=== PATIENT | male | born 2000 | race Caucasian/White ===

== ENCOUNTER 2023-08-18 18:40 | Emergency (ER) | payer OTHER ==
[2023-08-18 19:27] VITALS: TEMP 98.2; BMI 25.0
[2023-08-18] MEDS ORDERED: KETOROLAC TROMETHAMINE 15 MG/ML VIAL IM ONE (19:52)
[2023-08-18] MEDS ORDERED: KETOROLAC TROMETHAMINE 15 MG/ML VIAL ONE (20:07)
[2023-08-18 20:54] VITALS: BP 143/83; PULSE 88; RESP 14
== END 2023-08-18 20:54 | disposition home or self-care (01) ==
LOC: FER 18:40
PROC: 3E0233Z Introduction of Anti-inflammatory into Muscle, Percutaneous Approach (ICD-10-PCS; principal; 2023-08-18)
DX: M54.2 Cervicalgia (principal); M54.50 Low back pain, unspecified; V43.52XA Car driver injured in collision with other type car in traffic accident, initial encounter; Y92.9 Unspecified place or not applicable
CPT/HCPCS: 71046-TC-FY; 72170-TC-FY; 99284-25